=== PATIENT | male | born 1985 | race Two or more races ===

== ENCOUNTER 2019-02-16 18:07 | Emergency (ER) | payer SELFPAY ==
[~2019-02-16] VITALS: Ht 170.2 cm; Wt 100.0 kg
[2019-02-16 19:35] VITALS: BP 132/81
== END 2019-02-17 00:58 | disposition home or self-care (01) ==
LOC: ER 18:12
DX: S62.622A Displaced fracture of middle phalanx of right middle finger, initial encounter for closed fracture (principal); W22.8XXA Striking against or struck by other objects, initial encounter; Y93.89 Activity, other specified; Y99.8 Other external cause status; Y92.89 Other specified places as the place of occurrence of the external cause
CPT/HCPCS: 29130; 73130